=== PATIENT | female | born 1940 | race American Indian/Alaskan Native ===

== ENCOUNTER 2017-09-10 20:50 | Emergency (ER) | payer MEDICARE, BC ==
[2017-09-10 21:08] VITALS: RESP 18; TEMP 98.7
--- NOTE | 2017-09-10 21:23 | ED PDOC ---
Arrival/HPI - General Chief Complaint: Trauma Time Seen by Provider: 09/10/17 21:17 Historian: Patient - History of Present Illness Narrative History of Present Illness (Text): 09/10/17 21:20 77yo female with pmhx of hypertension present with complaint headache s/p trauma this evening. She states her right foot slid, when she turned and she landed on her buttocks and hit her head on the floor. States she was blurry s/p , but it resolved after few seconds. complaint of a bump on her head and pain to the area. Denies LOC, focal weakness, nausea, vomiting, dizziness (States she was dizzy earlier), any other complaint. 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 - Family/Social History - Physician Review Nursing Documentation Reviewed: Yes Family/Social History: Unknown Family HX Smoking Status: Never Smoked Hx Alcohol Use: No Hx Substance Use: No Allergies/Home Meds Allergies/Adverse Reactions: Allergies No Known Allergies Allergy (Unverified 09/10/17 20:59) Home Medications: Home Meds Medication Instructions Recorded Confirmed Aspirin [Ecotrin] 81 mg PO DAILY 09/10/17 09/10/17 Calcium Citrate/Vitamin D3 1 each PO DAILY 09/10/17 09/10/17 [Citracal + D Maximum Caplet] Carbidopa/Levodopa 1 each PO BID 09/10/17 09/10/17 [Carbidopa-Levodopa 25-100 Tab] Furosemide [Lasix] 40 mg PO DAILY 09/10/17 09/10/17 Multivit-Min/Iron/Folic/Lutein 1 each PO DAILY 09/10/17 09/10/17 [Centrum Silver Women Tablet] Tolterodine [Detrol LA] 4 mg PO DAILY 09/10/17 09/10/17 Review of Systems - Physician Review All systems were reviewed & negative as marked: Yes - Review of Systems Constitutional: Normal Eyes: Normal ENT: Normal Respiratory: Normal Cardiovascular: Normal Gastrointestinal: Normal Genitourinary Female: Normal Musculoskeletal: Normal Skin: Normal Neurological: Headache. absent: Dizziness, Focal Weakness, Gait Changes, Speech Changes Endocrine: Normal Hemo/Lymphatic: Normal Psychiatric: Normal Physical Exam Vital Signs Reviewed: Yes Vital Signs Temp Pulse Resp BP Pulse Ox 09/10/17 21:04 98.7 F 86 18 155/76 H 97 Temperature: Afebrile Blood Pressure: Normal Pulse: Regular Respiratory Rate: Normal Appearance: Positive for: Well-Appearing, Non-Toxic, Comfortable Pain Distress: None Mental Status: Positive for: Alert and Oriented X 3 - Systems Exam Head: Present: Atraumatic, Normocephalic, Tenderness (Over frontal scalp with small hematoma), Contusion (Frontal/parietal scalp) Pupils: Present: PERRL Extroacular Muscles: Present: EOMI Conjunctiva: Present: Normal Mouth: Present: Moist Mucous Membranes Neck: Present: Normal Range of Motion Respiratory/Chest: Present: Clear to Auscultation, Good Air Exchange. No: Respiratory Distress, Accessory Muscle Use Cardiovascular: Present: Regular Rate and Rhythm, Normal S1, S2. No: Murmurs Abdomen: No: Tenderness, Distention, Peritoneal Signs Back: Present: Normal Inspection Upper Extremity: Present: Normal Inspection. No: Cyanosis, Edema Lower Extremity: Present: Normal Inspection. No: Edema Neurological: Present: GCS=15, CN II-XII Intact, Speech Normal, Motor Func Grossly Intact, Normal Sensory Function, Normal Cerebellar Funct, Norm Deep Tendon Reflexes, Gait Normal, Memory Normal, Other (No focal neurological deficit) Skin: Present: Warm, Dry, Normal Color. No: Rashes Psychiatric: Present: Alert, Oriented x 3, Normal Insight, Normal Concentration Medical Decision Making ED Course and Treatment: 09/10/17 23:01 PT presented for stated history. She was neurologically intact in ED, AAO x3 and in no distress. Ice was placed to hematoma in ED and Tylenol was given for pain Head CT FINDINGS: Brain: Age-related atrophy and chronic small vessel ischemic disease. No hemorrhage. Ventricles: Unremarkable. No ventriculomegaly. Bones/joints: Prior left frontotemporal craniotomy. No acute fracture. Soft tissues: Mild right posterior vertex scalp swelling. Sinuses: Unremarkable as visualized. No acute sinusitis. Mastoid air cells: Unremarkable as visualized. No mastoid effusion. IMPRESSION: 1. No acute intracranial findings. 2. Mild right posterior vertex scalp swelling. 3. Age-related atrophy and chronic small vessel ischemic disease. Thank you for allowing us to participate in the care of your patient Result was DW the pt and she was DC home . Advised to take Tylenol as needed every 6hrs for pain and apply ice to area. Referred to her PMD. - RAD Interpretation Radiology Orders: 09/10/17 21:20 HEAD W/O CONTRAST [CT] Stat - Medication Orders Current Medication Orders: Discontinued Medications Acetaminophen (Tylenol 325mg Tab) 650 mg PO STAT STA Stop: 09/10/17 21:21 Last Admin: 09/10/17 21:38 Dose: 650 mg MAR Pain/Vitals Document 09/10/17 21:38 RG (Rec: 09/10/17 21:46 [id number]) Pain Reassessment Is This A Pain ReAssessment? 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 Ulcer: No History Surgical Site Infection Following: Abdominal Surgery, None - Disposition Have Diagnosis and Disposition been Completed?: Yes Diagnosis: Head injury Disposition: HOME/ ROUTINE Disposition Time: 23:05 Patient Plan: Discharge Condition: STABLE Discharge Instructions (ExitCare): Closed Head Injury, Minor Head Injury (DC) Additional Instructions: Follow up with your doctor Take Tylenol every 6hrs for pain and apply ice to area Return to ED for any new or worsening symptoms Referrals: [facility] at [facility] [place]Outside] - Follow up with primary Forms: [employer] (Yi)
[2017-09-11 00:36] VITALS: BP 150/72; PULSE 70; O2SAT 100
--- NOTE | 2017-09-11 09:24 | CT ---
PROCEDURE: CT HEAD WITHOUT CONTRAST. HISTORY: headache s/p trauma COMPARISON: None available. TECHNIQUE: Axial computed tomography images were obtained through the head/brain without intravenous contrast. Radiation dose: Total exam DLP = 764 mGy-cm. This CT exam was performed using one or more of the following dose reduction techniques: Automated exposure control, adjustment of the mA and/or kV according to patient size, and/or use of iterative reconstruction technique. FINDINGS: HEMORRHAGE: No intracranial hemorrhage. BRAIN: No mass effect or edema. No atrophy or chronic microvascular ischemic changes. VENTRICLES: Unremarkable. No hydrocephalus. CALVARIUM: Previous craniotomy left frontal region PARANASAL SINUSES: Unremarkable as visualized. No significant inflammatory changes. MASTOID AIR CELLS: Unremarkable as visualized. No inflammatory changes. OTHER FINDINGS: None. IMPRESSION: No acute findings
== END 2017-09-10 23:15 | disposition home or self-care (01) ==
LOC: ED 20:50
DX: S09.90XA Unspecified injury of head, initial encounter (principal); W01.0XXA Fall on same level from slipping, tripping and stumbling without subsequent striking against object, initial encounter; I10 Essential (primary) hypertension

== ENCOUNTER 2018-06-18 11:59 | Outpatient (CLI) | payer MEDICARE, BC | END 2018-06-18 12:00 | disposition home or self-care (01) | LOC: RAD 11:59 ==

== ENCOUNTER 2018-07-09 09:55 | Emergency (ER) | payer MEDICARE, BC ==
[2018-07-09 10:02] VITALS: BMI 26.6
--- NOTE | 2018-07-09 10:16 | ED PDOC ---
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 Pt was crossing the street when her foot got caught on the sidewalk edge, causing her to fall forward onto her hands and knees. Pt then rolled on to her right side. Denies head strike or LOC. Pt is not on blood thinners. Currently c/o bilateral knee pain, bilateral volar wrist pain, and right elbow pain. Pt was able to ambulate into the ED without difficulty. Unknown last tetanus. Denies vision changes, dizziness, headache, neck pain, back pain, abdominal pain, chest pain, SOB, numbness, weakness, paresthesias, or any other associated symptoms. Past Medical History - Provider Review Nursing Documentation Reviewed: Yes - Infectious Disease Hx of Infectious Diseases: None - Reproductive Menopause: Yes - Cardiac Hx Hypertension: Yes - Psychiatric Hx Substance Use: No - Surgical History Hx Appendectomy: Yes Other/Comment: Stomach Tumor removal - . 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 of Left Eye - - Anesthesia Hx Anesthesia Reactions: No Hx Malignant Hyperthermia: No Family/Social History - Physician Review Nursing Documentation Reviewed: Yes Family/Social History: No Known Family HX Smoking Status: Never Smoked Hx Alcohol Use: No Hx Substance Use: No Allergies/Home Meds Allergies/Adverse Reactions: Allergies No Known Allergies Allergy (Unverified 09/10/17 20:59) Home Medications: Home Meds Medication Instructions Recorded Confirmed Aspirin [Ecotrin] 81 mg PO DAILY 09/10/17 09/10/17 Calcium Citrate/Vitamin D3 1 each PO DAILY 09/10/17 09/10/17 [Citracal + D Maximum Caplet] Carbidopa/Levodopa 1 each PO BID 09/10/17 09/10/17 [Carbidopa-Levodopa 25-100 Tab] Furosemide [Lasix] 40 mg PO DAILY 09/10/17 09/10/17 Multivit-Min/Iron/Folic/Lutein 1 each PO DAILY 09/10/17 09/10/17 [Centrum Silver Women Tablet] Tolterodine [Detrol LA] 4 mg PO DAILY 09/10/17 09/10/17 Review of Systems - Review of Systems Constitutional: Normal. absent: Fevers Eyes: Normal. absent: Vision Changes, Photophobia ENT: Normal. absent: Sore Throat, Sinus Congestion Respiratory: Normal. absent: SOB, Cough Cardiovascular: Normal. absent: Chest Pain, Palpitations Gastrointestinal: Normal. absent: Abdominal Pain, Nausea, Vomiting Musculoskeletal: Other (bilateral knee pain, bilateral volar wrist pain, right elbow pain) Skin: Normal. absent: Rash Neurological: Normal. absent: Headache, Dizziness, Gait Changes, Disequilibrium Physical Exam Vital Signs Reviewed: Yes Temperature: Afebrile Blood Pressure: Normal Pulse: Regular Respiratory Rate: Normal Appearance: Positive for: Well-Appearing, Non-Toxic, Comfortable Pain Distress: None Mental Status: Positive for: Alert and Oriented X 3 - Systems Exam Head: Present: Atraumatic, Normocephalic Pupils: Present: PERRL Extroacular Muscles: Present: EOMI Conjunctiva: Present: Normal Mouth: Present: Moist Mucous Membranes Neck: Present: Normal Range of Motion. No: Meningeal Signs, MIDLINE TENDERNESS, Paraspinal Tenderness Respiratory/Chest: Present: Clear to Auscultation, Good Air Exchange. No: Respiratory Distress, Accessory Muscle Use Cardiovascular: Present: Regular Rate and Rhythm, Normal S1, S2, Peripheal Pulses Present Abdomen: No: Tenderness, Distention, Peritoneal Signs, Rebound, Guarding Back: Present: Normal Inspection. No: Midline Tenderness, Paraspinal Tenderness Upper Extremity: Present: Normal Inspection, Normal ROM, NORMAL PULSES, Tenderness (mild right posterior elbow and right volar wrist ), Neurovascularly Intact, Capillary Refill < 2s. No: Cyanosis, Edema, Swelling, Temperature Abnormalties, Deformity Lower Extremity: Present: Normal Inspection, NORMAL PULSES, Normal ROM, Te nderness (mild to bilateral anterior knees), Neurovascularly Intact, Capillary Refill < 2 s, Other (small superficial abrasion left anterior medial knee). No: Edema, Swelling, Deformity, Temperature Abnormalties Neurological: Present: GCS=15, CN II-XII Intact, Speech Normal, Motor Func Grossly Intact, Normal Sensory Function, Gait Normal Skin: Present: Warm, Dry, Normal Color. No: Rashes Psychiatric: Present: Alert, Oriented x 3, Normal Insight, Normal Concentration, Normal Affect, Normal Mood Medical Decision Making ED Course and Treatment: 07/09/18 10:24 Initial Plan: * Bilateral knee XR * Bilateral hand XR * Right elbow XR * TDaP Patient refusing pain medication at this time. Patient arrived to the ED A&Ox3, neurologically intact, ambulating per baseline, appears well. Xrays negative for acute pathology. No fracture or dislocation. Diagnostic testing results and plan of care discussed with patient. Strict instructions given regarding importance of followup, and signs/symptoms to return to ER including numbness, paresthesias, dizziness, back pain, or any other new/worsening symptoms. Pt verbalized understanding of discussion. Patient is A&Ox3, ambulating with steady gait, with vital signs stable for discharge. - RAD Interpretation Narrative RAD Interpretations (Text): 07/09/18 12:20 Right Elbow XR: FINDINGS: BONES: Normal. No fracture. JOINTS: Normal. No osteoarthritis. SOFT TISSUES: Normal. JOINT EFFUSION: None. OTHER FINDINGS: None. IMPRESSION: Unremarkable radiographs of the right elbow. Right Wrist XR: FINDINGS: BONES: No acute fracture. There is some chronic deformity of the triquetrum. JOINTS: Normal. No dislocation. SOFT TISSUES: Normal. OTHER FINDINGS: None. IMPRESSION: No acute findings Left Wrist XR: FINDINGS: BONES: Normal. No fracture. JOINTS: Normal. No dislocation. SOFT TISSUES: Normal. OTHER FINDINGS: None. IMPRESSION: Normal left wrist radiographs. Bilateral Knee XR: FINDINGS: BONES: Right Knee: Normal. No fracture. Left Knee: Normal. No fracture. JOINTS: Right Knee: Normal. No osteoarthritis. 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 Left Knee: Normal. JOINT EFFUSION: Right Knee: None. Left Knee: None. OTHER FINDINGS: None. IMPRESSION: Degenerative changes in the left patellofemoral joint. 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 Ulcer: No History Surgical Site Infection Following: None - Disposition Have Diagnosis and Disposition been Completed?: Yes Diagnosis: Abrasion, Knee pain, Fall, Wrist pain Disposition: HOME/ ROUTINE Disposition Time: 12:30 Patient Plan: Discharge Condition: IMPROVED Discharge Instructions (ExitCare): Preventing Falls in the Older Adult, Skin Abrasions (DC), Knee Pain Additional Instructions: Keep abrasion covered and clean Rest, no strenuous activity Tylenol as needed for pain Followup with primary doctor within 2 days Return to ER with any new/worsening symptoms Referrals: Michael Brown, DO [Primary Care Provider] - Follow up with primary Forms: [employer] (Nepali)
[2018-07-09 10:26] VITALS: TEMP 97.8
[2018-07-09] MEDS ORDERED: TDAP Vaccine 0.5 mL Syr IM ONE (10:34)
[2018-07-09 10:58] VITALS: RESP 16
[2018-07-09 11:48] VITALS: BP 148/72; PULSE 68; O2SAT 100
--- NOTE | 2018-07-09 12:20 | RAD ---
Date of service: 07/09/2018 PROCEDURE: Radiographs of the right elbow. HISTORY: trauma this AM, posterior pain COMPARISON: No prior. TECHNIQUE: 3 views obtained. FINDINGS: BONES: Normal. No fracture. JOINTS: Normal. No osteoarthritis. SOFT TISSUES: Normal. JOINT EFFUSION: None. OTHER FINDINGS: None. IMPRESSION: Unremarkable radiographs of the right elbow.
--- NOTE | 2018-07-09 12:23 | RAD ---
Date of service: 07/09/2018 PROCEDURE: Right Wrist Radiographs. HISTORY: trauma this AM, volar wrist pain COMPARISON: None. TECHNIQUE: 4 views obtained. FINDINGS: BONES: No acute fracture. There is some chronic deformity of the triquetrum. JOINTS: Normal. No dislocation. SOFT TISSUES: Normal. OTHER FINDINGS: None. IMPRESSION: No acute findings
--- NOTE | 2018-07-09 12:24 | RAD ---
Date of service: 07/09/2018 PROCEDURE: Left Wrist Radiographs. HISTORY: trauma this AM, volar wrist pain COMPARISON: None. TECHNIQUE: 4 views obtained. FINDINGS: BONES: Normal. No fracture. JOINTS: Normal. No dislocation. SOFT TISSUES: Normal. OTHER FINDINGS: None. IMPRESSION: Normal left wrist radiographs.
--- NOTE | 2018-07-09 12:27 | RAD ---
Date of service: 07/09/2018 PROCEDURE: Bilateral Knee Radiographs. HISTORY: trauma this AM, fell on knees COMPARISON: None. TECHNIQUE: Six views obtained. FINDINGS: BONES: Right Knee: Normal. No fracture. Left Knee: Normal. No fracture. JOINTS: Right Knee: Normal. No osteoarthritis. 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 Left Knee: Normal. JOINT EFFUSION: Right Knee: None. Left Knee: None. OTHER FINDINGS: None. IMPRESSION: Degenerative changes in the left patellofemoral joint. No acute findings
== END 2018-07-09 12:54 | disposition home or self-care (01) ==
LOC: ED 09:55
DX: M25.531 Pain in right wrist (principal); M25.532 Pain in left wrist; M25.561 Pain in right knee; M25.562 Pain in left knee; S80.212A Abrasion, left knee, initial encounter; W18.30XA Fall on same level, unspecified, initial encounter; Y92.480 Sidewalk as the place of occurrence of the external cause; I10 Essential (primary) hypertension; Z23 Encounter for immunization